=== PATIENT | male | born 1950 | race Caucasian/White ===

== ENCOUNTER 2017-07-30 00:12 | Emergency (ER) | payer MEDICARE, MEDICAID ==
[~2017-07-30] VITALS: Ht 175.3 cm; Wt 110.0 kg
[2017-07-30] MEDS ORDERED: IOHEXOL 350 MG/ML 10 ML VIAL (for RAD DIAG) IVCONTRAST ONE (00:13)
[2017-07-30 00:25] VITALS: BP 132/83; PULSE 89; RESP 18; TEMP 99.2; O2SAT 91
[2017-07-30 00:29] VITALS: O2SAT 91
[2017-07-30] MEDS ORDERED: PLAV75TA29 PO (00:40)
[2017-07-30 00:51] LABS: AUTOMATED NEUTROPHIL # 5.5 TH/MM3 (1.8-7.7); BASOPHIL # 0.1 TH/MM3 (0-0.2); BASOPHIL % 0.6 % (0.0-2.0); EOSINOPHIL # 0.3 TH/MM3 (0-0.4); EOSINOPHIL % 2.8 % (0.0-4.0); HEMATOCRIT 40.1 % (39.0-51.0); HEMOGLOBIN 13.9 GM/DL (13.0-17.0); LYMPHOCYTE # 2.4 TH/MM3 (1.0-4.8); MEAN CELL VOLUME 88.3 FL (80.0-100.0); MEAN CORPUSCULAR HEMOGLOBIN 30.7 PG (27.0-34.0); MEAN CORPUSCULAR HGB CONC 34.8 % (32.0-36.0); MEAN PLATELET VOLUME 9.1 FL (7.0-11.0); MONO % 7.4 % (0.0-8.0); MONOCYTE # 0.7 TH/MM3 (0-0.9); NEUT % 62.2 % (16.0-70.0); PLATELET COUNT 201 TH/MM3 (150-450); RED BLOOD COUNT 4.54 MIL/MM3 (4.50-5.90); WHITE BLOOD COUNT 8.9 TH/MM3 (4.0-11.0)
--- NOTE | 2017-07-30 00:59 | RADRPT ---
EXAM DATE: 07/30/2017 12:53 AM EDT AGE/SEX: 66 years / Male INDICATIONS: Abdominal pain. CLINICAL DATA: This is the patient's initial encounter. Patient reports that signs and symptoms have been present for 1 day and indicates a pain score of 6/10. MEDICAL/SURGICAL HISTORY: Stroke. Diabetes. Cerebrovascular disease. Fusion, lumbar. COMPARISON: No prior exams available for comparison. FINDINGS: Supine and upright views of the abdomen were performed. The abdominal bowel gas pattern is normal. No air-fluid levels are seen. No abnormal masses, calcifications, or organomegaly is seen. The visualiz ed lower lungs are clear. No evidence of free intraperitoneal gas. The osseous structures demonstrate previous fusion across the lumbosacral junction. CONCLUSION: No acute findings. Previous fusion across the lumbosacral junction. Electronically signed by: Stas Guallpa MD 07/30/2017 12:57 AM EDT
--- NOTE | 2017-07-30 01:06 | PD ---
HPI . 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 Brother says he does not usually complain of pain and he is nonverbal patient had been taking Zofran since he left the prison as prescribed by Dr. Osborn who took care of him in the prison in the ER the patient is awake alert says yes to all the questions brother says he always says yes and that the same abdomen is somewhat tense mildly distended and patient has a pain facial reaction when I palpate lower abdomen main complaint is diarrhea 4 days abdomen pain progressively getting worse not relieved by Zofran [facility] Past Medical History Cerebrovascular Accident: Yes Diabetes: Yes Patient Takes Glucophage: Yes Social History Alcohol Use: No Tobacco Use: No Substance Use: No Allergies-Medications (Allergen,Severity, Reaction): Coded Allergies: No Known Allergies (Unverified , 07/30/17) Reported Meds & Prescriptions Reported Meds & Active Scripts Active Miralax Powder (Polyethylene Glycol 3350 Powder) 17 Gm Powd 17 Gm PO DAILY Mix and dissolve one measuring cap-ful (17 grams) in water or juice. Reported Plavix (Clopidogrel Bisulfate) Unknown Strength Tab Unknown Dose PO DAILY Review of Systems ROS Limitations: Speech Impaired, Other: (pRIOR cva WITH APHASIA) Physical Exam Narrative GENERAL: right hemiparesis non verbal SKIN: Warm and dry. HEAD: Atraumatic. Normocephalic. EYES: Pupils equal and round. No scleral icterus. No injection or drainage. ENT: No nasal bleeding or discharge. Mucous membranes pink and moist. NECK: Trachea midline. No JVD. CARDIOVASCULAR: Regular rate and rhythm. RESPIRATORY: No accessory muscle use. Clear to auscultation. Breath sounds equal bilaterally. GASTROINTESTINAL: Abdomen tense and tender and distended MUSCULOSKELETAL: Extremities right arm and leg hemiparalysis NEUROLOGICAL: Awake and alert. right hemiparesis non verbal PSYCHIATRIC: awake alert unable to speak except 'yes' Data Data Last Documented VS Vital Signs Date Time Temp Pulse Resp B/P (MAP) Pulse Ox O2 Delivery O2 Flow Rate FiO2 07/30/17 00:29 91 Nasal Cannula 2.00 07/30/17 00:25 99.2 89 18 132/83 (99) Orders Orders Complete Blood Count With Diff (07/30/17 00:22) Comprehensive Metabolic Panel (07/30/17 00:22) Lipase (07/30/17 00:22) Lactic Acid (07/30/17 00:22) Abdomen, Flat & Upright (07/30/17 ) Iv Access Insert/Monitor (07/30/17 00:22) Ecg Monitoring (07/30/17 00:22) Oximetry (07/30/17 00:22) Electrocardiogram (07/30/17 00:22) C Diff Toxin Pcr (07/30/17 00:58) Ct Abd/Pel W Iv Contrast(Rout) (07/30/17 ) Morphine Inj (Morphine Inj) (07/30/17 01:30) Morphine Inj (Morphine Inj) (07/30/17 01:30) Iohexol 350 Inj (Omnipaque 350 Inj) (07/30/17 00:13) Enema (07/30/17 03:00) Labs Laboratory Tests Test 07/30/17 00:37 White Blood Count 8.9 TH/MM3 Red Blood Count 4.54 MIL/MM3 Hemoglobin 13.9 GM/DL Hematocrit 40.1 % Mean Corpuscular Volume 88.3 FL Mean Corpuscular Hemoglobin 30.7 PG Mean Corpuscular Hemoglobin Concent 34.8 % Red Cell Distribution Width 14.0 % Platelet Count 201 TH/MM3 Mean Platelet Volume 9.1 FL Neutrophils (%) (Auto) 62.2 % Lymphocytes (%) (Auto) 27.0 % Monocytes (%) (Auto) 7.4 % Eosinophils (%) (Auto) 2.8 % Basophils (%) (Auto) 0.6 % Neutrophils # (Auto) 5.5 TH/MM3 Lymphocytes # (Auto) 2.4 TH/MM3 Monocytes # (Auto) 0.7 TH/MM3 Eosinophils # (Auto) 0.3 TH/MM3 Basophils # (Auto) 0.1 TH/MM3 CBC Comment DIFF FINAL Differential Comment Blood Urea Nitrogen 15 MG/DL Creatinine 0.87 MG/DL Random Glucose 110 MG/DL Total Protein 9.0 GM/DL Albumin 3.5 GM/DL Calcium Level 9.2 MG/DL Alkaline Phosphatase 103 U/L Aspartate Amino Transf (AST/SGOT) 51 U/L Alanine Aminotransferase (ALT/SGPT) 33 U/L Total Bilirubin 0.4 MG/DL Sodium Level 140 MEQ/L Potassium Level 4.7 MEQ/L Chloride Level 106 MEQ/L Carbon Dioxide Level 26.6 MEQ/L Anion Gap 7 MEQ/L Estimat Glomerular Filtration Rate 88 ML/MIN Lactic Acid Level 2.1 mmol/L Lipase 101 U/L [facility] Medical Decision Making Medical Screen Exam Complete: Yes Emergency Medical Condition: Yes Differential Diagnosis C. difficile diarrhea versus viral gastroenteritis versus constipation with overflow incontinence versus ischemic colitis versus infectious colitis Narrative Course CT shows fecal impaction distending the rectum and sigmoid soapsuds enema is done and manual disimpaction by nurse with good amount of stool eliminated from the rectum patient feels better it is safe to let him go home to follow-up with his outpatient doctor Diagnosis Primary Impression: Fecal impaction in rectum Patient Instructions: Constipation (ED), General Instructions Scripts Polyethylene Glycol 3350 Powder (Miralax Powder) 17 Gm Powd 17 GM PO DAILY for Constipation, #1 CAN 0 Refills Mix and dissolve one measuring cap-ful (17 grams) in water or juice. Prov: Lincoln Butler MD 07/30/17 Disposition: 01 DISCHARGE HOME Condition: Stable Lincoln Butler MD Jul 30, 2017 01:06
[2017-07-30 01:13] LABS: ALKALINE PHOSPHATASE 103 U/L (45-117); TOTAL BILIRUBIN ADULT 0.4 MG/DL (0.2-1.0)
[2017-07-30 01:30] LABS: ALBUMIN 3.5 GM/DL (3.4-5.0); ALT (GPT) 33 U/L (12-78); AST (GOT) 51 U/L (15-37); BICARBONATE 26.6 MEQ/L (21.0-32.0); BLOOD UREA NITROGEN 15 MG/DL (7-18); CALCIUM 9.2 MG/DL (8.5-10.1); CHLORIDE 106 MEQ/L (98-107); CREATININE 0.87 MG/DL (0.60-1.30); GLOMERULAR FILTRATION RATE 88 ML/MIN (>89); GLUCOSE,RANDOM 110 MG/DL (74-106); SODIUM (NA) 140 MEQ/L (136-145)
[2017-07-30] MEDS ORDERED: MORPHINE SULFATE 2 MG/ML SYRINGE IV PUSH ONE (01:30)
[2017-07-30] MEDS ORDERED: MORPHINE SULFATE 4 MG/ML INJ IV PUSH ONE (01:30)
--- NOTE | 2017-07-30 02:27 | RADRPT ---
EXAM DATE: 07/30/2017 2:10 AM EDT AGE/SEX: 66 years / Male INDICATIONS: Abdominal pain and diarrhea. CLINICAL DATA: This is the patient's initial encounter. Patient reports that signs and symptoms have been present for 1 day and indicates a pain score of 5/10. MEDICAL/SURGICAL HISTORY: Cerebrovascular disease. Diabetes. None. Lumbar fusion ORAL CONTRAST: No oral contrast ingested. RADIATION DOSE: 12.15 CTDI (mGy) COMPARISON: No prior exams available for comparison. TECHNIQUE: Multiple contiguous axial images were obtained through the abdomen and pelvis following b olus infusion of 97 ml Omnipaque 350 (iohexol) nonionic water-soluble contrast as a single exam dos e. No oral contrast ingested. Using automated exposure control and adjustment of the mA and/or kV ac cording to patient size, the radiation dose was kept as low as reasonably achievable to obtain optima l diagnostic quality images. FINDINGS: Lung bases are clear. Mild fatty liver. Spleen, adrenals and pancreas unremarkable. Small bilateral renal cysts. No hydrone phrosis. No calcified gallstones or biliary ductal dilatation. No free fluid. Moderate rectosigmoid constipation. CONCLUSION: 1. No acute findings. Mild to moderate constipation. Previous fusion across the lumbosacral junction . Electronically signed by: Stas Guallpa MD 07/30/2017 2:25 AM EDT
[2017-07-30] MEDS ORDERED: MIRA3350 PO (03:50)
--- NOTE | 2017-07-30 14:56 | EKG ---
Date Performed: 07/29/2017 Time Performed: 23:41:58 PTAGE: 66 years EKG: Sinus rhythm LOW QRS VOLTAGE IN PRECORDIAL LEADS POSSIBLE RIGHT VENTRICULAR CONDUCTION DELAY NONSPECIFIC T-WAVE A BNORMALITY BORDERLINE ECG NO PREVIOUS TRACING DOCTOR: Nelson Agee Interpretating Date/Time 07/30/2017 14:54:50
== END 2017-07-30 08:48 | disposition home or self-care (01) ==
LOC: NEPE 00:12
DX: K56.41 Fecal impaction (principal); R94.31 Abnormal electrocardiogram [ECG] [EKG]; E11.9 Type 2 diabetes mellitus without complications; I69.320 Aphasia following cerebral infarction; I69.361 Other paralytic syndrome following cerebral infarction affecting right dominant side; Z74.01 Bed confinement status; Z79.84 Long term (current) use of oral hypoglycemic drugs; Z79.02 Long term (current) use of antithrombotics/antiplatelets; Z79.899 Other long term (current) drug therapy
CPT/HCPCS: 74019; 74177; 80053; 83605; 83690; 85025; 93005; 96374; 99285; J2270; Q9967